=== PATIENT | male | born 1935 | race Caucasian/White ===

== ENCOUNTER 2018-02-26 22:59 | Emergency (ER) | payer MEDICARE, BC ==
--- NOTE | 2018-02-26 23:55 | EDM.PDOC ---
ED HPI GENERAL MEDICAL PROBLEM - General Chief Complaint: ENT Problem Stated Complaint: bleeding; dental procedure Time Seen by Provider: 02/26/18 23:20 Source of Information: Reports: Patient, RN History Limitations: Reports: No Limitations - History of Present Illness INITIAL COMMENTS - FREE TEXT/NARRATIVE: Patient is a 82-year-old who had a left upper motor extraction today came into the ER with uncontrolled bleeding from the extraction socket area Onset: Sudden Duration: Hour(s):, Intermittent Location: Reports: Face Quality: Reports: Dull Severity: Mild Improves with: Reports: None Worsens with: Reports: None Context: Reports: Trauma Associated Symptoms: Reports: No Other Symptoms Treatments QUEBRACHO TANNER: Reports: Dressing(s) - Related Data Allergies Allergy/AdvReac Type Severity Reaction Status Date / Time No Known Allergies Allergy Verified 02/26/18 23:13 Home Meds: Home Meds Aspirin [Halfprin] 81 mg PO DAILY 02/26/18 [History] amLODIPine Besylate [Amlodipine Besylate] 5 mg PO DAILY 02/26/18 [History] atorvaSTATin [Lipitor] 10 mg PO DAILY 02/26/18 [History] Past Medical History HEENT History: Reports: Impaired Vision Cardiovascular History: Reports: High Cholesterol Social & Family History - Tobacco Use Smoking Status *Q: Never Smoker - Recreational Drug Use Recreational Drug Use: No ED ROS ENT - Review of Systems Review Of Systems: See Below Constitutional: Reports: No Symptoms HEENT: Reports: Other (Bleeding from extraction site) Respiratory: Reports: No Symptoms Cardiovascular: Reports: No Symptoms Endocrine: Reports: No Symptoms GI/Abdominal: Reports: No Symptoms : Reports: No Symptoms Musculoskeletal: Reports: No Symptoms Skin: Reports: No Symptoms Neurological: Reports: No Symptoms Psychiatric: Reports: No Symptoms Hematologic/Lymphatic: Reports: Easy Bleeding (Extraction site) ED EXAM, ENT - Physical Exam Exam: See Below Exam Limited By: No Limitations General Appearance: Alert, WD/WN, No Apparent Distress Eye Exam: Bilateral Eye: EOMI, PERRL Ears: Normal External Exam, Normal Canal, Hearing Grossly Normal, Normal TMs Nose: Normal Inspection, Normal Mucousa, No Blood Mouth/Throat: Bleeding (Extraction site) Head: Atraumatic, Normocephalic Neck: Normal Inspection, Supple, Non-Tender, Full Range of Motion Respiratory/Chest: No Respiratory Distress, Lungs Clear, Normal Breath Sounds, No Accessory Muscle Use, Chest Non-Tender Cardiovascular: Normal Peripheral Pulses, Regular Rate, Rhythm, No Edema, No Gallop, No JVD, No Murmur, No Rub GI/Abdominal: Normal Bowel Sounds, Soft, Non-Tender, No Organomegaly, No Distention, No Abnormal Bruit, No Mass, Distended (Male) Exam: Deferred Rectal (Males) Exam: Deferred Back: Normal Inspection, Full Range of Motion Extremities: Normal Inspection, Normal Range of Motion, Non-Tender, No Pedal Edema, Normal Capillary Refill Neurological: Alert, Oriented, CN II-XII Intact, Normal Cognition, Normal Gait, Normal Reflexes, No Motor/Sensory Deficits Psychiatric: Normal Affect, Normal Mood Skin: Warm, Dry, Intact, Normal Color, No Rash Course - Vital Signs Last Recorded V/S: Last Vital Signs Temp 99 F 02/26/18 23:16 Pulse 65 02/26/18 23:16 Resp 16 02/26/18 23:16 BP 159/93 H 02/26/18 23:16 Pulse Ox 95 02/26/18 23:16 Departure - Departure Time of Disposition: 00:10 Disposition: Home, Self-Care 01 Condition: Good Clinical Impression: Surgical wound hemorrhage after dental procedure - Discharge Information Referrals: Claudio Donovan PA [Primary Care Provider] - Additional Instructions: Patient instructed to change 4 x 4 as needed at current time no bleeding seen will follow-up with dentist as needed Care Plan Goals: ED HPI GENERAL MEDICAL PROBLEM - General Chief Complaint: ENT Problem Stated Complaint: bleeding; dental procedure Time Seen by Provider: 02/26/18 23:20 Source of Information: Reports: Patient, RN History Limitations: Reports: No Limitations - History of Present Illness INITIAL COMMENTS - FREE TEXT/NARRATIVE: Patient is a 82-year-old who had a left upper motor extraction today came into the ER with uncontrolled bleeding from the extraction socket area Onset: Sudden Duration: Hour(s):, Intermittent Location: Reports: Face Quality: Reports: Dull Severity: Mild Improves with: Reports: None Worsens with: Reports: None Context: Reports: Trauma Associated Symptoms: Reports: No Other Symptoms Treatments QUEBRACHO TANNER: Reports: Dressing(s) - Related Data Allergies Allergy/AdvReac Type Severity Reaction Status Date / Time No Known Allergies Allergy Verified 02/26/18 23:13 Home Meds: Home Meds Aspirin [Halfprin] 81 mg PO DAILY 02/26/18 [History] amLODIPine Besylate [Amlodipine Besylate] 5 mg PO DAILY 02/26/18 [History] atorvaSTATin [Lipitor] 10 mg PO DAILY 02/26/18 [History] Past Medical History HEENT History: Reports: Impaired Vision Cardiovascular History: Reports: High Cholesterol Social & Family History - Tobacco Use Smoking Status *Q: Never Smoker - Recreational Drug Use Recreational Drug Use: No ED ROS ENT - Review of Systems Review Of Systems: See Below Constitutional: Reports: No Symptoms HEENT: Reports: Other (Bleeding from extraction site) Respiratory: Reports: No Symptoms Cardiovascular: Reports: No Symptoms Endocrine: Reports: No Symptoms GI/Abdominal: Reports: No Symptoms : Reports: No Symptoms Musculoskeletal: Reports: No Symptoms Skin: Reports: No Symptoms Neurological: Reports: No Symptoms Psychiatric: Reports: No Symptoms Hematologic/Lymphatic: Reports: Easy Bleeding (Extraction site) ED EXAM, ENT - Physical Exam Exam: See Below Exam Limited By: No Limitations General Appearance: Alert, WD/WN, No Apparent Distress Eye Exam: Bilateral Eye: EOMI, PERRL Ears: Normal External Exam, Normal Canal, Hearing Grossly Normal, Normal TMs Nose: Normal Inspection, Normal Mucousa, No Blood Mouth/Throat: Bleeding (Extraction site) Head: Atraumatic, Normocephalic Neck: Normal Inspection, Supple, Non-Tender, Full Range of Motion Respiratory/Chest: No Respiratory Distress, Lungs Clear, Normal Breath Sounds, No Accessory Muscle Use, Chest Non-Tender Cardiovascular: Normal Peripheral Pulses, Regular Rate, Rhythm, No Edema, No Gallop, No JVD, No Murmur, No Rub GI/Abdominal: Normal Bowel Sounds, Soft, Non-Tender, No Organomegaly, No Distention, No Abnormal Bruit, No Mass, Distended (Male) Exam: Deferred Rectal (Males) Exam: Deferred Back: Normal Inspection, Full Range of Motion Extremities: Normal Inspection, Normal Range of Motion, Non-Tender, No Pedal Edema, Normal Capillary Refill Neurological: Alert, Oriented, CN II-XII Intact, Normal Cognition, Normal Gait, Normal Reflexes, No Motor/Sensory Deficits Psychiatric: Normal Affect, Normal Mood Skin: Warm, Dry, Intact, Normal Color, No Rash Course - Vital Signs Last Recorded V/S: Last Vital Signs Temp 99 F 02/26/18 23:16 Pulse 65 02/26/18 23:16 Resp 16 02/26/18 23:16 BP 159/93 H 02/26/18 23:16 Pulse Ox 95 02/26/18 23:16 Departure - Departure Disposition: Home, Self-Care 01 Clinical Impression: Surgical wound hemorrhage after dental procedure - Discharge Information Referrals: Claudio Donovan PA [Primary Care Provider] -
== END 2018-02-27 00:20 | disposition home or self-care (01) ==
LOC: SUPCPDRO 22:59 → LL.ED 22:59
DX: K91.840 Postprocedural hemorrhage of a digestive system organ or structure following a digestive system procedure (principal); Z79.82 Long term (current) use of aspirin; Z79.899 Other long term (current) drug therapy
CPT/HCPCS: 99282

== ENCOUNTER 2022-07-13 07:53 | Emergency (ER) | payer MEDICARE, BC ==
[2022-07-13] MEDS ORDERED: hydrALAZINE 20 MG/ML SDV IVPUSH ONE (08:25)
[2022-07-13] MEDS ORDERED: Sodium Chloride 0.9% 10 ML Syringe FLUSH PRN (08:29)
[2022-07-13 09:17] LABS: ANION GAP 7.5 meq/L (7-15); CHLORIDE,CL 105 mmol/L (98-107); ESTIMATED GFR 58 mL/min (>=60); SODIUM,NA 141 mmol/L (136-145)
[2022-07-13] MEDS ORDERED: cloNIDine 0.1 MG Tab PO ONE (09:50)
== END 2022-07-13 10:50 | disposition home or self-care (01) ==
LOC: LL.ED 07:53
DX: I10 Essential (primary) hypertension (principal); E78.00 Pure hypercholesterolemia, unspecified; Z79.899 Other long term (current) drug therapy; Z79.82 Long term (current) use of aspirin
CPT/HCPCS: 36415; 80053; 81001; 83735; 84100; 85025; 86140; 93005; 96374; 99284; J0360; J3490